=== PATIENT | female | born 1975 | race Hispanic/Latino ===

== ENCOUNTER 2019-05-06 06:17 | Emergency (ER) | payer SELFPAY ==
[2019-05-06 08:11] LABS: Absolute Lymphocytes (CBC) 1.5 K/uL (0.7-4.9); Absolute Monocytes 0.8 K/uL (0.1-1.3); Absolute Neutrophil 8.1 K/uL (1.8-8.0); Basophils % 0.6 % (0-1.3); Eosinophils % 1.7 % (0-4.4); Hematocrit 31.8 % (36.0-45.0); Lymphocytes % 14.2 % (15.3-44.8); MPV 7.5 fL (7.6-11.3); Monocytes % 7.3 % (3.3-12.3); RBC Red Blood Cell Count 3.64 M/uL (3.86-4.86)
[2019-05-06 08:14] LABS: Protime INR 0.96
[2019-05-06] MEDS ORDERED: FENTANYL CITR 100 MCG/2 ML ONE ×2 (08:18→11:22)
[2019-05-06 08:21] LABS: BUN Blood Urea Nitrogen 9 mg/dL (7-18); Bicarbonate 25 mmol/L (21-32); Glucose Level 109 mg/dL (74-106); Potassium 3.9 mmol/L (3.5-5.1); Sodium Level 138 mmol/L (136-145)
[2019-05-06] MEDS ORDERED: HEPARIN/D5W 25,000 UNIT/500 ML BAG IV ONE (10:48)
--- NOTE | 2019-05-06 11:01 | EDPHYS ---
Physician Documentation [facility] Name: Khadijah Lacey Age: 43 yrs Sex: Female : 1975 Arrival Date: 05/06/2019 Time: 06:19 Bed 7 Private MD: ED Physician Stevie Barbosa HPI: 05/06 07:47 This 43 yrs old Female presents to ER via Ambulatory with complaints of jr8 Numbness Of Arm, Arm Pain. 07:47 The patient or guardian complains of pain. The complaints affect the left arm. Context: jr8 The problem was sustained at home. Onset: The symptoms/episode began/occurred acutely, this morning, today. Treatment prior to arrival includes: no previous treatment. Modifying factors: The symptoms are alleviated by nothing. the symptoms are aggravated by movement. Associated signs and symptoms: Pertinent positives: numbness, pain, tingling. Severity of symptoms: At their worst the symptoms were moderate, in the emergency department the symptoms are unchanged. The patient has not experienced similar symptoms in the past. The patient has not recently seen a physician. Patient stated that she was laying on arm for several hours watching movies. Stated that she felt fine but then started to have numbness, tingling, and pain to left arm. Has not gone away for past hour . 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 - Social history:: Smoking status: Patient uses tobacco products, smokes one-half pack cigarettes per day. - Ebola Screening: : No symptoms or risks identified at this time. ROS: 07:47 Eyes: Negative for injury, pain, redness, and discharge, ENT: Negative for injury, jr8 pain, and discharge, Neck: Negative for injury, pain, and swelling, Cardiovascular: Negative for chest pain, palpitations, and edema, Respiratory: Negative for shortness of breath, cough, wheezing, and pleuritic chest pain, Abdomen/GI: Negative for abdominal pain, nausea, vomiting, diarrhea, and constipation, Back: Negative for injury and pain, Skin: Negative for injury, rash, and discoloration. 07:47 MS/extremity: Positive for pain, paresthesias, of the left arm. 07:47 Neuro: Positive for numbness, tingling, of the left arm. Exam: 07:47 Head/Face: Normocephalic, atraumatic. Eyes: Pupils equal round and reactive to light, jr8 extra-ocular motions intact. Lids and lashes normal. Conjunctiva and sclera are non-icteric and not injected. Cornea within normal limits. Periorbital areas with no swelling, redness, or edema. ENT: Nares patent. No nasal discharge, no septal abnormalities noted. Tympanic membranes are normal and external auditory canals are clear. Oropharynx with no redness, swelling, or masses, exudates, or evidence of obstruction, uvula midline. Mucous membranes moist. Neck: Trachea midline, no thyromegaly or masses palpated, and no cervical lymphadenopathy. Supple, full range of motion without nuchal rigidity, or vertebral point tenderness. No Meningismus. Cardiovascular: Regular rate and rhythm with a normal S1 and S2. No gallops, murmurs, or rubs. Normal PMI, no JVD. No pulse deficits. Respiratory: Lungs have equal breath sounds bilaterally, clear to auscultation and percussion. No rales, rhonchi or wheezes noted. No increased work of breathing, no retractions or nasal flaring. Abdomen/GI: Soft, non-tender, with normal bowel sounds. No distension or tympany. No guarding or rebound. No evidence of tenderness throughout. Back: No spinal tenderness. No costovertebral tenderness. Full range of motion. Skin: Warm, dry with normal turgor. Normal color with no rashes, no lesions, and no evidence of cellulitis. Neuro: Awake and alert, GCS 15, oriented to person, place, time, and situation. Cranial nerves II-XII grossly intact. Motor strength 5/5 in all extremities. Sensory grossly intact. Cerebellar exam normal. Normal gait. 07:47 Musculoskeletal/extremity: Extremities: grossly normal except: noted in the left arm: Patient has full ROM in all extremities. Mild pain with rotation of movement of left arm. Patient has mild sensory deficit to left forearm. Patient has 2+ pulses to right radial and PT, DP, and 2+ to left PT and DP. No pulse appreciated to left radial artery, Pulses: are absent in the left radial artery and left brachial artery, Perfusion: the extremity is pink, warm. Vital Signs: 06:31 BP 170 / 105; Pulse 91; Resp 18; Temp 97.8(O); Pulse Ox 100% on R/A; Weight 81.65 kg; lp1 Height 5 ft. 4 in. (162.56 cm); Pain 7/10; 08:15 BP 168 / 88; Pulse 84; Resp 15; Pulse Ox 100% on R/A; Pain 9/10; hb 09:30 BP 170 / 81; Pulse 80; Resp 14; Pulse Ox 99% on R/A; hb 10:15 BP 168 / 102; Pulse 85; Resp 16; Pulse Ox 100% on R/A; hb 10:34 Weight 83.8 kg (M); hb 11:15 BP 161 / 100; Pulse 88; Resp 16; Pulse Ox 100% on R/A; Pain 8/10; hb 12:00 BP 160 / 102; Pulse 86; Resp 15; Temp 98; Pulse Ox 100% on R/A; Pain 8/10; hb 10:34 Body Mass Index 31.71 (83.80 kg, 162.56 cm) hb MDM: 06:27 Patient medically screened. speedy 10:26 Data reviewed: vital signs, nurses notes, lab test result(s), EKG, radiologic studies, jr8 ultrasound. Data interpreted: Pulse oximetry: on room air is 99 %. Interpretation: normal. Counseling: I had a detailed discussion with the patient and/or guardian regarding: the historical points, exam findings, and any diagnostic results supporting the discharge/admit diagnosis, lab results, radiology results, the need to transfer to another facility. 10:59 ED course: Dr. Roche Medicine and Vascular surgery both accepted patient. Patient will jr8 be going to OR shortly after arrival to [facility] for revascularization . 05/06 07:00 Order name: CBC with Diff jr8 05/06 07:00 Order name: Basic Metabolic Panel; Complete Time: 08:40 [facility] 05/06 07:00 Order name: Protime (+inr); Complete Time: 08:40 [facility] 05/06 07:00 Order name: Ptt, Activated; Complete Time: 08:40 [facility] 06/13 07:03 Order name: CBC with Automated Diff; Complete Time: 08:40 EDMS 05/06 07:00 Order name: IV; Complete Time: 08:05 jr8 05/06 09:31 Order name: Upper Ext Artery Uni Emery; Complete Time: 11:08 EDMS 05/06 10:15 Order name: EKG; Complete Time: 10:16 jr8 05/06 10:15 Order name: EKG - Nurse/Tech; Complete Time: 10:42 jr8 Administered Medications: 08:05 Drug: fentaNYL (PF) 25 mcg Route: IVP; Site: right antecubital; hb 08:40 Follow up: Response: No adverse reaction; Pain is decreased hb 09:06 Drug: fentaNYL (PF) 50 mcg Route: IVP; Site: right antecubital; hb 09:40 Follow up: Response: No adverse reaction; Pain is decreased hb 11:00 Drug: Heparin (DVT/PE Drip) 18 units/kg/hr - (HEParin 94352 units, D5W 500 ml) hb {Co-Signature: aa5 (Kiarra Garcia RN).} Route: IV; Rate: calculated rate; Site: right wrist; 12:03 Follow up: Response: No adverse reaction; IV Status: Infusion continued upon transfer; hb IV Intake: 31ml 11:12 Drug: fentaNYL (PF) 50 mcg Route: IVP; Site: right antecubital; hb 11:32 Follow up: Response: No adverse reaction; Pain is decreased hb 12:03 Drug: Dilaudid 0.5 mg Route: IVP; Site: right antecubital; hb 12:03 Follow up: Response: Medication administered at discharge. hb Disposition: 05/06/19 11:[address] [facility]. 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 - Reason for transfer: Higher level of care. - Accepting physician is Dr. Roche. - Condition is Stable. - Problem is new. - Symptoms are unchanged. Addendum: 05/10/2019 08:34 Co-signature as Attending Physician, Stevie Barbosa MD I agree with the assessment and c mazariegos plan of care. Signatures: Dispatcher [employer] Stevie Kauffman MD MD cha Pena, Laura, RN RN lp1 Julian Patrick PA PA jr8 Doreen Connelly RN RN Kiarra Garcia RN aa5 Corrections: (The following items were deleted from the chart) 05/06 09:31 07:07 Upper Ext Artery Uni Emery ordered. EDMS EDMS 10:27 07:47 Musculoskeletal/extremity: Extremities: grossly normal except: noted in the left jr8 arm: Patient has full ROM in all extremities. Mild pain with rotation of movement of left arm. Patient has mild sensory deficit to left forearm. Patient has 2+ pulses to right radial and PT, DP, and 2+ to left PT and DP. No pulse appreciated to left radial artery, Perfusion: the extremity is pink, warm, jrShawanda 11:01 10:59 ED course: Dr. Cook Medicine and Vascular surgery both accepted patient. Patient 8 will be going to OR shortly after arrival to [facility] for revascularization . jr8 11:01 11:00 05/06/2019 11:[address] [facility]. Diagnosis is jr8 Arterial embolism and thrombosis - Left Upper Extremity . Reason for transfer: Higher level of care. Accepting physician is Dr. Cook. Condition is Stable. Problem is new. Symptoms are unchanged. jr8 12:16 11:01 05/06/2019 11:[address] [facility]. Diagnosis is hb Arterial embolism and thrombosis - Left Upper Extremity . Reason for transfer: Higher level of care. Accepting physician is Dr. Roche. Condition is Stable. Problem is new. Symptoms are unchanged. jr8
--- NOTE | 2019-05-06 11:01 | ER ---
Nurse's Notes [facility] Name: Khadijah Lacey Age: 43 yrs Sex: Female : 1975 Arrival Date: 05/06/2019 Time: 06:19 Bed 7 Private MD: Diagnosis: Arterial embolism and thrombosis-Left Upper Extremity Presentation: 05/06 06:30 Presenting complaint: Patient states: Pain to left arm, tingling feeling; States "I lp1 think I fell asleep on my arm for about 4-5 hours and then it woke me up"; Complaint of pain on motion of left arm. Transition of care: patient was not received from another setting of care. Onset of symptoms was May 06, 2019. Risk Assessment: Do you want to hurt yourself or someone else? Patient reports no desire to harm self or others. Initial Sepsis Screen: Does the patient meet any 2 criteria? No. Patient's initial sepsis screen is negative. Does the patient have a suspected source of infection? No. Patient's initial sepsis screen is negative. Care prior to arrival: None. 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 - Social history:: Smoking status: Patient uses tobacco products, smokes one-half pack cigarettes per day. - Ebola Screening: : No symptoms or risks identified at this time. Screenin:32 Abuse screen: Denies threats or abuse. Denies injuries from another. Nutritional lp1 screening: No deficits noted. Tuberculosis screening: No symptoms or risk factors identified. Fall Risk None identified. Assessment: 06:32 General: Appears uncomfortable, Behavior is appropriate for age. Pain: Complains of lp1 pain in left arm Pain currently is 7 out of 10 on a pain scale. Quality of pain is described as burning, tingling. Neuro: Level of Consciousness is awake, alert, obeys commands, Oriented to person, place, time, situation, Gait is steady, Pupils are PERRLA, Intact. Cardiovascular: Patient's skin is warm and dry. Respiratory: No deficits noted. GI: No signs and/or symptoms were reported involving the gastrointestinal system. : No signs and/or symptoms were reported regarding the genitourinary system. EENT: No signs and/or symptoms were reported regarding the EENT system. Derm: Skin is pink, warm \\T\\ dry. Musculoskeletal: Reports pain in left arm. 07:36 Reassessment: Pt to US. hb 08:06 Reassessment: Pt returned from US, unable to complete scan due to pt movement r/t pain. hb MISSY Jordan notified, Fentanyl administered as ordered. Family at bedside. 09:00 Reassessment: Patient appears in no apparent distress at this time. Patient and/or hb family updated on plan of care and expected duration. Pain level reassessed. Patient is alert, oriented x 3, equal unlabored respirations, skin warm/dry/pink. 09:58 Reassessment: Patient appears in no apparent distress at this time. Patient and/or hb family updated on plan of care and expected duration. Pain level reassessed. Patient is alert, oriented x 3, equal unlabored respirations, skin warm/dry/pink. 11:39 Reassessment: Report called to MILLIE Ureña at [facility]. Reassessment:. hb 11:45 Reassessment: Patient appears in no apparent distress at this time. Patient and/or hb family updated on plan of care and expected duration. Pain level reassessed. Patient is alert, oriented x 3, equal unlabored respirations, skin warm/dry/pink. Vital Signs: 06:31 BP 170 / 105; Pulse 91; Resp 18; Temp 97.8(O); Pulse Ox 100% on R/A; Weight 81.65 kg; lp1 Height 5 ft. 4 in. (162.56 cm); Pain 7/10; 08:15 BP 168 / 88; Pulse 84; Resp 15; Pulse Ox 100% on R/A; Pain 9/10; hb 09:30 BP 170 / 81; Pulse 80; Resp 14; Pulse Ox 99% on R/A; hb 10:15 BP 168 / 102; Pulse 85; Resp 16; Pulse Ox 100% on R/A; hb 10:34 Weight 83.8 kg (M); hb 11:15 BP 161 / 100; Pulse 88; Resp 16; Pulse Ox 100% on R/A; Pain 8/10; hb 12:00 BP 160 / 102; Pulse 86; Resp 15; Temp 98; Pulse Ox 100% on R/A; Pain 8/10; hb 10:34 Body Mass Index 31.71 (83.80 kg, 162.56 cm) hb ED Course: 06:19 Patient arrived in ED. am2 06:21 Julian Patrick PA is PHCP. jr8 06:21 Stevie Barbosa MD is Attending Physician. jr8 06:30 Taylor Flores, RN is Primary Nurse. lp1 06:31 Triage completed. lp1 06:32 Arm band placed on right wrist. lp1 06:34 Patient has correct armband on for positive identification. lp1 08:00 Inserted saline lock: 20 gauge in right antecubital area, using aseptic technique. hb Blood collected. 08:06 CBC with Diff Sent. hb 09:31 Upper Ext Artery Uni Emery In Process Unspecified. EDMS 10:59 Inserted saline lock: 20 gauge in right wrist, using aseptic technique. hb 11:11 EKG done, by rf test technician. reviewed by Julian LOUIS. sm3 12:15 No provider procedures requiring assistance completed. Patient transferred, IV remains hb in place. Administered Medications: 08:05 Drug: fentaNYL (PF) 25 mcg Route: IVP; Site: right antecubital; hb 08:40 Follow up: Response: No adverse reaction; Pain is decreased hb 09:06 Drug: fentaNYL (PF) 50 mcg Route: IVP; Site: right antecubital; hb 09:40 Follow up: Response: No adverse reaction; Pain is decreased hb 11:00 Drug: Heparin (DVT/PE Drip) 18 units/kg/hr - (HEParin 68438 units, D5W 500 ml) hb {Co-Signature: aa5 (Kiarra Garcia RN).} Route: IV; Rate: calculated rate; Site: right wrist; 12:03 Follow up: Response: No adverse reaction; IV Status: Infusion continued upon transfer; hb IV Intake: 31ml 11:12 Drug: fentaNYL (PF) 50 mcg Route: IVP; Site: right antecubital; hb 11:32 Follow up: Response: No adverse reaction; Pain is decreased hb 12:03 Drug: Dilaudid 0.5 mg Route: IVP; Site: right antecubital; hb 12:03 Follow up: Response: Medication administered at discharge. hb Intake: 12:03 IV: 31ml; Total: 31ml. hb Outcome: 11:00 ER care complete, transfer ordered by MD. araiza 12:15 Transferred by ground EMS to [facility]. hb 12:15 Condition: stable 12:15 Instructed on the need for transfer, Demonstrated understanding of instructions. 12:16 Patient left the ED. hb Signatures: Dispatcher [employer] EDMS Taylor Flores RN RN lp1 Julian Patrick PA PA jr8 Doreen Connelly RN RN Estela Lang am2 Dawna Rolon 3 Kiarra Garcia RN aa5 Corrections: (The following items were deleted from the chart) 06:32 06:32 Arm band placed on left wrist. lp1 lp1 07:03 06:30 Acuity: LINDA 4 lp1 lp1
--- NOTE | 2019-05-06 11:07 | RAD REPORT ---
EXAM DESCRIPTION: US - Upper Ext Artery Uni Emery - 05/06/2019 9:30 am CLINICAL HISTORY: Pulse deficit Left arm COMPARISON: No comparisons FINDINGS: The left upper extremity arterial system was interrogated utilizing Doppler technique. Normal flow was seen in the left common carotid artery, subclavian artery, axillary artery. Some flow was seen in the radial artery as well. No flow was visualized in the left radial artery at the level of the antecubital fossa and ulnar artery, compatible with arterial occlusion.
[2019-05-06] MEDS ORDERED: HYDROMORPHONE HCL 0.5 MG/0.5 ML INJ ONE (12:13)
--- NOTE | 2019-05-07 08:07 | EKG ---
Test Date: 2019-05-06 Test Time: 10:35:18 [employer] Outside Sales Representative: KARLEE MEASUREMENT RESULTS: Intervals: Rate: 79 NM: 142 QRSD: 80 QT: 402 QTc: 460 [place]: P: 55 NM: 142 QRS: 57 T: 55 INTERPRETIVE STATEMENTS: Normal sinus rhythm with sinus arrhythmia Normal ECG No previous ECG available for comparison Electronically Signed On 05-07-19 08:06:36 CDT by Du Ray
== END 2019-05-06 12:16 | disposition short-term general hospital (02) ==
LOC: ER 06:17
DX: I74.2 Embolism and thrombosis of arteries of the upper extremities (principal); F17.210 Nicotine dependence, cigarettes, uncomplicated
CPT/HCPCS: 36415; 80048; 85025; 85610; 85730; 93005; 93931; 96365; 96375; 99285; J1170; J3010

== ENCOUNTER 2019-08-06 06:14 | Emergency (ER) | payer SELFPAY ==
--- OUTSIDE RECORDS SUMMARY | 2019-08-06 06:17 | XMS REPORT ---
:1975 [facility] Address [address] [place] [address] Care Team Providers Name Role Phone RADHA LLANOS Unavailable Unavailable Problems This patient has no known problems. Allergies, Adverse Reactions, Alerts This patient has no known allergies or adverse reactions. Medications This patient has no known medications. Results Test Description Test Time Test Comments Text Results Atomic Results Result Comments U/S, ENDOVAGINAL 2019-05-11 Reason for FINAL REPORT PATIENT ID: (EV) 14:49:00 exam:->vaginal [id number] TECHNIQUE: bleeding Transabdominal and transvaginal grayscale ultrasound of the pelvis. INDICATION: 43-year-old woman with vaginal bleeding. COMPARISON: None. FINDINGS: UTERUS: The uterus measures approximately 8.5 x 4.6 x 6 cm cm. The uterus is diffusely heterogeneous in echotexture with a lobulated contour, suggestive of multiple uterine fibroids. For example, a circumscribed hypoechoic uterine fibroid measures 1.8 x 1.5 x 1.9 cm. The endometrial echo complex is not clearly identified on transvaginal images due to the suspected fibroids, however a structure resembling the endometrium on transabdominal images measures 0.6 cm. Cervical nabothian cysts. OVARIES/ADNEXA: The right ovary is unremarkable and measures 2.1 x 1.1 x 2.8 cm. The left ovary is not clearly visualized. Flow was not assessed in the right ovary as this was not a Doppler exam. PELVIS: No free fluid. IMPRESSION:Diffuse heterogeneous and lobulated contour of the uterus, suggestive of multiple fibroids. The endometrium was not clearly identified on transvaginal images due to the suspected fibroids, however a structure resembling the endometrium appears within normal limits on transabdominal images. RECOMMENDATION:Pelvic MRI with and without intravenous contrast may be obtained for further evaluation of above findings. Signed: Lissy Meraz MDReport Verified Date/Time: 05/11/2019 14:49:18 Reading Location: [place] [id number] Consult Reading Room C METABOLIC PANEL 2019-05-11 05:46:00 Test Item Value Reference Range Comments SODIUM (BEAKER) (test 138 meq/L 136-145 maas=021) POTASSIUM (BEAKER) (test 3.9 meq/L 3.5-5.1 pzue=081) CHLORIDE (BEAKER) (test 108 meq/L 98-107 pfuq=696) CO2 (BEAKER) (test itmf=824) 23 meq/L 22-29 BLOOD UREA NITROGEN (BEAKER) 9 mg/dL 7-21 (test kxpe=862) CREATININE (BEAKER) (test 0.73 mg/dL 0.57-1.25 nbyg=371) GLUCOSE RANDOM (BEAKER) 90 mg/dL 70-105 (test gxos=906) CALCIUM (BEAKER) (test 9.3 mg/dL 8.4-10.2 mnwd=426) EGFR (BEAKER) (test mL/min/1.73 sq m INSUFFICIENT CLINICAL DATA TO hbpc=6090) CALCULATE ESTIMATED GFR. [id number] 05:33:00 Test Item Value Reference Range Comments PARTIAL THROMBOPLASTIN TIME (BEAKER) (test 99.3 seconds 22.5-36.0 oqbf=559) CBC (HEMOGRAM ONLY)2019-05-11 05:23:00 Test Item Value Reference Range Comments WHITE BLOOD CELL COUNT (BEAKER) (test bwvd=972) 7.8 K/ L 3.5-10.5 RED BLOOD CELL COUNT (BEAKER) (test bzis=047) 3.00 M/ L 3.93-5.22 HEMOGLOBIN (BEAKER) (test lvjr=009) 8.3 GM/DL 11.2-15.7 HEMATOCRIT (BEAKER) (test xjnd=174) 26.4 % 34.1-44.9 MEAN CORPUSCULAR VOLUME (BEAKER) (test jvii=267) 88.0 fL 79.4-94.8 MEAN CORPUSCULAR HEMOGLOBIN (BEAKER) (test 27.7 pg 25.6-32.2 zkgl=875) MEAN CORPUSCULAR HEMOGLOBIN CONC (BEAKER) (test 31.4 GM/DL 32.2-35.5 txge=299) RED CELL DISTRIBUTION WIDTH (BEAKER) (test 15.5 % 11.7-14.4 vifn=779) PLATELET COUNT (BEAKER) (test jngb=079) 371 K/CU MM 150-450 MEAN PLATELET VOLUME (BEAKER) (test digj=433) 9.9 fL 9.4-12.3 NUCLEATED RED BLOOD CELLS (BEAKER) (test 0 /100 WBC 0-0 lfec=227) U/S, [id number] 17:50:00Reason for exam:->Vaginal bleedingShould this be performed at the bedside?->NoFINAL REPORT TECHNIQUE : Transabdominal and transvaginal grayscale ultrasound of the pelvis. INDICATION : 43-year-old woman with vaginal bleeding. COMPARISON: None. FINDINGS: UTERUS: The uterus measures approximately 8.5 x 4.6 x 6 cm cm. The uterus is diffusely heterogeneous in echotexture with a lobulated contour, suggestive of multiple uterine fibroids. For example, a circumscribed hypoechoic uterine fibroid measures 1.8 x 1.5 x 1.9 cm. The endometrial echo complex is not clearly identified on transvaginal images due to the suspected fibroids, however a structure resembling the endometrium on transabdominal images measures 0.6 cm. Cervical nabothian cysts. OVARIES/ADNEXA: The right ovary is unremarkable and measures 2.1 x 1.1 x 2.8 cm. The left ovary is not clearly visualized. Flow was not assessed in the right ovary as this was not a Doppler exam. PELVIS: No free fluid.IMPRESSION:Diffuse heterogeneous and lobulated contour of the uterus, suggestive of multiple fibroids. The endometrium was not clearly identified on transvaginal images due to the suspected fibroids, however a structure resembling the endometrium appears within normal limits on transabdominal images. RECOMMENDATION:Pelvic MRI with and without intravenous contrast may be obtained for further evaluation of above findings. Signed: Lissy Meraz MDReport Verified Date/Time: 05/10/2019 17:50:00 Reading Location: [address] Consult Reading Room [facility] METABOLIC [id number] 05:16:00 Test Item Value Reference Range Comments SODIUM (BEAKER) (test 137 meq/L 136-145 lsyx=695) POTASSIUM (BEAKER) (test 4.2 meq/L 3.5-5.1 tlom=004) CHLORIDE (BEAKER) (test 108 meq/L 98-107 ugvn=220) CO2 (BEAKER) (test 22 meq/L 22-29 gwqu=457) BLOOD UREA NITROGEN 9 mg/dL 7-21 (BEAKER) (test eqjr=970) CREATININE (BEAKER) (test 0.69 mg/dL 0.57-1.25 ipul=965) GLUCOSE RANDOM (BEAKER) 99 mg/dL 70-105 (test nsvv=890) CALCIUM (BEAKER) (test 9.0 mg/dL 8.4-10.2 ykns=018) EGFR (BEAKER) (test mL/min/1.73 sq m INSUFFICIENT CLINICAL DATA uswy=2997) TO CALCULATE ESTIMATED GFR. [id number] 05:03:00 Test Item Value Reference Range Comments PARTIAL THROMBOPLASTIN TIME (BEAKER) (test 91.7 seconds 22.5-36.0 deql=779) CBC (HEMOGRAM ONLY)2019-05-10 04:46:00 Test Item Value Reference Range Comments WHITE BLOOD CELL COUNT (BEAKER) (test aodw=122) 7.8 K/ L 3.5-10.5 RED BLOOD CELL COUNT (BEAKER) (test fnra=758) 3.00 M/ L 3.93-5.22 HEMOGLOBIN (BEAKER) (test jndw=326) 8.3 GM/DL 11.2-15.7 HEMATOCRIT (BEAKER) (test tnyr=796) 26.6 % 34.1-44.9 MEAN CORPUSCULAR VOLUME (BEAKER) (test gfif=917) 88.7 fL 79.4-94.8 MEAN CORPUSCULAR HEMOGLOBIN (BEAKER) (test 27.7 pg 25.6-32.2 ilqv=034) MEAN CORPUSCULAR HEMOGLOBIN CONC (BEAKER) (test 31.2 GM/DL 32.2-35.5 qcbu=608) RED CELL DISTRIBUTION WIDTH (BEAKER) (test 15.4 % 11.7-14.4 tdmi=340) PLATELET COUNT (BEAKER) (test mttc=552) 350 K/CU MM 150-450 MEAN PLATELET VOLUME (BEAKER) (test fgrq=735) 9.8 fL 9.4-12.3 NUCLEATED RED BLOOD CELLS (BEAKER) (test 0 /100 WBC 0-0 drku=652) [id number] 11:57:00 Test Item Value Reference Range Comments PARTIAL THROMBOPLASTIN TIME (BEAKER) (test 78.1 seconds 22.5-36.0 yssh=803) BASIC METABOLIC [id number] 06:24:00 Test Item Value Reference Range Comments SODIUM (BEAKER) (test 138 meq/L 136-145 bogy=781) POTASSIUM (BEAKER) (test 4.2 meq/L 3.5-5.1 kltu=724) CHLORIDE (BEAKER) (test 109 meq/L 98-107 rhte=003) CO2 (BEAKER) (test 23 meq/L 22-29 fran=884) BLOOD UREA NITROGEN 9 mg/dL 7-21 (BEAKER) (test lsuh=111) CREATININE (BEAKER) (test 0.69 mg/dL 0.57-1.25 adqx=686) GLUCOSE RANDOM (BEAKER) 88 mg/dL 70-105 (test eawg=225) CALCIUM (BEAKER) (test 8.9 mg/dL 8.4-10.2 fjct=753) EGFR (BEAKER) (test mL/min/1.73 sq m INSUFFICIENT CLINICAL DATA aqve=4352) TO CALCULATE ESTIMATED GFR. [id number] 06:09:00 Test Item Value Reference Range Comments PARTIAL THROMBOPLASTIN TIME (BEAKER) (test 87.6 seconds 22.5-36.0 xweq=146) CBC (HEMOGRAM ONLY)2019-05-09 05:53:00 Test Item Value Reference Range Comments WHITE BLOOD CELL COUNT (BEAKER) (test qjuj=355) 7.6 K/ L 3.5-10.5 RED BLOOD CELL COUNT (BEAKER) (test uodr=982) 3.01 M/ L 3.93-5.22 HEMOGLOBIN (BEAKER) (test aknh=993) 8.4 GM/DL 11.2-15.7 HEMATOCRIT (BEAKER) (test dsyh=012) 27.1 % 34.1-44.9 MEAN CORPUSCULAR VOLUME (BEAKER) (test nwxf=283) 90.0 fL 79.4-94.8 MEAN CORPUSCULAR HEMOGLOBIN (BEAKER) (test 27.9 pg 25.6-32.2 cyhb=732) MEAN CORPUSCULAR HEMOGLOBIN CONC (BEAKER) (test 31.0 GM/DL 32.2-35.5 jwrf=091) RED CELL DISTRIBUTION WIDTH (BEAKER) (test 15.6 % 11.7-14.4 dgih=375) PLATELET COUNT (BEAKER) (test gpkn=597) 350 K/CU MM 150-450 MEAN PLATELET VOLUME (BEAKER) (test gtyk=363) 10.0 fL 9.4-12.3 NUCLEATED RED BLOOD CELLS (BEAKER) (test 0 /100 WBC 0-0 cuxx=124) [id number] 22:21:00 Test Item Value Reference Range Comments PARTIAL THROMBOPLASTIN TIME (BEAKER) (test 113.4 seconds 22.5-36.0 vsev=701) [id number] 14:36:00 Test Item Value Reference Range Comments PARTIAL THROMBOPLASTIN TIME (BEAKER) (test 101.2 seconds 22.5-36.0 sxmu=851) CT, CHEST WITH IV CONTRAST- PE TEST [id number] 11:05:00FINAL REPORT TECHNIQUE: CT of the chest WITH intravenous contrast ( pulmonary embolism protocol). Dose modulation, iterative reconstruction, and/or weight-based adjustment of the mA/kV was utilized to reduce the radiation dose to as low as reasonably achievable. INDICATION: Rule out pulmonary embolus. COMPARISON: None. FINDINGS: LINES/TUBES: None. PULMONARY ARTERIES: Proximal to the bifurcation of the main pulmonary artery, the main pulmonary artery is 2 cm in diameter. No filling defects within the pulmonary arteries to suggest pulmonary embolus. LUNGS AND AIRWAYS: Centralairways are patent. No consolidation. 3 mm nodular density in the left lower lobe (axial lung windowseries image 39). Mild dependent atelectasis in both lower lobes. PLEURA: The pleural spaces are clear. HEART AND MEDIASTINUM: The visualized thyroid gland is normal. No significant mediastinal, hilar,or axillary lymphadenopathy. The heart and pericardium are within normal limits. SOFT TISSUES AND BONES: Unremarkable. UPPER ABDOMEN: 1.3 x 1.1 cm left adrenal nodule with density of 4 Hounsfield units, consistent with a benign adenoma. Otherwise, unremarkable. IMPRESSION:No pulmonary embolism or other acute abnormalities in the chest. 3 mm nodular density in the left lower lobe may represent a nodular focus of atelectasis, however pulmonary nodule cannot be excluded. Benign left adrenal adenoma. RECOMMENDATION:If patient is at high risk for bronchogenic neoplasm, then follow-up chest CT may be obtained in 12 months to reassess the nodular density. If patient is at low risk for bronchogenic neoplasm, then no follow-up imaging is recommended for this finding. Signed: Lissy Meraz MDReport Verified Date/Time: 05/08/2019 11:05:08 Reading Location: [facility] [id number] CT Body Reading Room Electronically signed by: LSISY MERAZ MD on 2018 11:05 AMBASIC METABOLIC [id number] 06:56:00 Test Item Value Reference Range Comments SODIUM (BEAKER) (test 135 meq/L 136-145 bmnr=608) POTASSIUM (BEAKER) (test 3.9 meq/L 3.5-5.1 przb=352) CHLORIDE (BEAKER) (test 105 meq/L 98-107 djvk=363) CO2 (BEAKER) (test 24 meq/L 22-29 suqu=927) BLOOD UREA NITROGEN 9 mg/dL 7-21 (BEAKER) (test kqfi=151) CREATININE (BEAKER) (test 0.69 mg/dL 0.57-1.25 yakd=956) GLUCOSE RANDOM (BEAKER) 116 mg/dL 70-105 (test hxbd=090) CALCIUM (BEAKER) (test 9.0 mg/dL 8.4-10.2 lvzu=218) EGFR (BEAKER) (test mL/min/1.73 sq m INSUFFICIENT CLINICAL DATA rahs=5757) TO CALCULATE ESTIMATED GFR. [id number] 06:44:00 Test Item Value Reference Range Comments PARTIAL THROMBOPLASTIN TIME (BEAKER) (test 62.4 seconds 22.5-36.0 qmbs=503) CBC (HEMOGRAM ONLY)2019-05-08 06:23:00 Test Item Value Reference Range Comments WHITE BLOOD CELL COUNT (BEAKER) (test ughc=867) 9.2 K/ L 3.5-10.5 RED BLOOD CELL COUNT (BEAKER) (test csps=662) 3.12 M/ L 3.93-5.22 HEMOGLOBIN (BEAKER) (test syse=181) 8.6 GM/DL 11.2-15.7 HEMATOCRIT (BEAKER) (test sljd=582) 27.9 % 34.1-44.9 MEAN CORPUSCULAR VOLUME (BEAKER) (test over=892) 89.4 fL 79.4-94.8 MEAN CORPUSCULAR HEMOGLOBIN (BEAKER) (test 27.6 pg 25.6-32.2 xtcr=980) MEAN CORPUSCULAR HEMOGLOBIN CONC (BEAKER) (test 30.8 GM/DL 32.2-35.5 kddm=453) RED CELL DISTRIBUTION WIDTH (BEAKER) (test 15.4 % 11.7-14.4 hudx=776) PLATELET COUNT (BEAKER) (test adsh=049) 354 K/CU MM 150-450 MEAN PLATELET VOLUME (BEAKER) (test dzvk=687) 9.8 fL 9.4-12.3 NUCLEATED RED BLOOD CELLS (BEAKER) (test 0 /100 WBC 0-0 napp=658) [id number] 23:48:00 Test Item Value Reference Range Comments PARTIAL THROMBOPLASTIN TIME (BEAKER) (test 54.2 seconds 22.5-36.0 kmdt=277) URINALYSIS WITH MICROSCOPIC IF [id number] 14:38:00 Test Item Value Reference Range Comments COLOR (BEAKER) (test jhde=344) Yellow CLARITY (BEAKER) (test cead=681) Hazy SPECIFIC GRAVITY UA (BEAKER) (test oxdx=495) 1.020 1.001-1.035 PH UA (BEAKER) (test jdqa=872) 5.5 5.0-8.0 PROTEIN UA (BEAKER) (test nrdf=318) 10 mg/dL Negative GLUCOSE UA (BEAKER) (test vtrz=923) Negative Negative KETONES UA (BEAKER) (test yuaq=338) Negative Negative BILIRUBIN UA (BEAKER) (test gldg=993) Negative Negative BLOOD UA (BEAKER) (test rugc=440) Negative Negative NITRITE UA (BEAKER) (test umhq=089) Negative Negative LEUKOCYTE ESTERASE UA (BEAKER) (test qdkj=122) Negative Negative UROBILINOGEN UA (BEAKER) (test wagd=910) 0.2 mg/dL 0.2-1.0 SOURCE(BEAKER) (test fwwz=5826) URINALYSIS [id number] 14:38:00 Test Item Value Reference Range Comments RBC UA (BEAKER) (test bivs=326) 1 /HPF WBC UA (BEAKER) (test xlbu=653) < /HPF BACTERIA (BEAKER) (test ywjw=202) Rare MUCUS (BEAKER) (test pfyv=8030) Many SQUAMOUS EPITHELIAL (BEAKER) (test kywk=867) 3 /HPF [id number] 14:28:00 Test Item Value Reference Range Comments PARTIAL THROMBOPLASTIN TIME (BEAKER) (test 87.6 seconds 22.5-36.0 eqau=563) SCREEN, [id number] 09:38:00 Test Item Value Reference Range Comments TEST URINE (BEAKER) (test mnji=979) Negative BASIC METABOLIC [id number] 06:38:00 Test Item Value Reference Range Comments SODIUM (BEAKER) (test 137 meq/L 136-145 etzk=561) POTASSIUM (BEAKER) (test 3.7 meq/L 3.5-5.1 ghil=742) CHLORIDE (BEAKER) (test 106 meq/L 98-107 xdnd=199) CO2 (BEAKER) (test 24 meq/L 22-29 tuji=099) BLOOD UREA NITROGEN 10 mg/dL 7-21 (BEAKER) (test lwhf=938) CREATININE (BEAKER) (test 0.74 mg/dL 0.57-1.25 oclk=962) GLUCOSE RANDOM (BEAKER) 86 mg/dL 70-105 (test lkqv=209) CALCIUM (BEAKER) (test 9.3 mg/dL 8.4-10.2 lpie=590) EGFR (BEAKER) (test mL/min/1.73 sq m INSUFFICIENT CLINICAL DATA lpmq=3892) TO CALCULATE ESTIMATED GFR. [id number] 06:17:00 Test Item Value Reference Range Comments PARTIAL THROMBOPLASTIN TIME (BEAKER) (test 49.3 seconds 22.5-36.0 nyvr=214) CBC (HEMOGRAM ONLY)2019-05-07 06:00:00 Test Item Value Reference Range Comments WHITE BLOOD CELL COUNT (BEAKER) (test jkwv=946) 10.8 K/ L 3.5-10.5 RED BLOOD CELL COUNT (BEAKER) (test sdpe=767) 3.38 M/ L 3.93-5.22 HEMOGLOBIN (BEAKER) (test mxfg=410) 9.3 GM/DL 11.2-15.7 HEMATOCRIT (BEAKER) (test ecrz=054) 30.0 % 34.1-44.9 MEAN CORPUSCULAR VOLUME (BEAKER) (test ksdw=444) 88.8 fL 79.4-94.8 MEAN CORPUSCULAR HEMOGLOBIN (BEAKER) (test 27.5 pg 25.6-32.2 brmx=773) MEAN CORPUSCULAR HEMOGLOBIN CONC (BEAKER) (test 31.0 GM/DL 32.2-35.5 plch=886) RED CELL DISTRIBUTION WIDTH (BEAKER) (test 15.4 % 11.7-14.4 nxxf=844) PLATELET COUNT (BEAKER) (test hbti=638) 367 K/CU MM 150-450 MEAN PLATELET VOLUME (BEAKER) (test ftvd=879) 9.8 fL 9.4-12.3 NUCLEATED RED BLOOD CELLS (BEAKER) (test 0 /100 WBC 0-0 buft=837) [id number] 23:21:00 Test Item Value Reference Range Comments PARTIAL THROMBOPLASTIN TIME (BEAKER) (test 41.9 seconds 22.5-36.0 thte=882) [id number] 16:46:00 Test Item Value Reference Range Comments PARTIAL THROMBOPLASTIN TIME (BEAKER) (test 29.2 seconds 22.5-36.0 bwqp=679) Prior to initiating heparin
--- OUTSIDE RECORDS SUMMARY | 2019-08-06 06:17 | XMS REPORT | Clinical Summary ---
:1975 Author Organization [facility] Address [address] [place] [address] Care Team Providers Name Role Phone Pcp, No Primary Care Provider Unavailable Brian Uribe Unavailable Allergies No Known Allergies Medications Medication Sig Dispensed Refills Start Date End Date Status apixaban (ELIQUIS) Take 1 tablet 60 tablet 2 05/11/2019 08/09/2019 Active 5 mg Tab tablet (5 mg total) by mouth 2 (two) times daily for 90 days. famotidine Take 1 tablet 30 tablet 0 05/11/2019 Active (PEPCID) 20 MG (20 mg total) tablet by mouth every 12 (twelve) hours. famotidine Take 1 tablet 30 tablet 0 05/11/2019 05/11/2019 Discontinued (PEPCID) 20 MG (20 mg total) tablet by mouth every 12 (twelve) hours. apixaban (ELIQUIS) Take 1 tablet 60 tablet 2 05/11/2019 05/11/2019 Discontinued 5 mg Tab tablet (5 mg total) by mouth 2 (two) times daily for 90 days. 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 Last Filed Vital Signs Vital Sign Reading Time Taken Blood Pressure 130/74 05/11/2019 4:21 PM CDT Pulse 78 05/11/2019 4:21 PM CDT Temperature 36.2 C (97.2 F) 05/11/2019 4:21 PM CDT Respiratory Rate 18 05/11/2019 4:21 PM CDT Oxygen Saturation 100% 05/11/2019 4:21 PM CDT Inhaled Oxygen Concentration - - Weight 83.3 kg (183 lb 10.3 oz) 05/11/2019 9:00 AM CDT Height 162.6 cm (5' 4") 05/08/2019 11:00 PM CDT Body Mass Index 31.52 05/11/2019 9:00 AM CDT Plan of Treatment Not on file Procedures Procedure Name Priority Date/Time Associated Comments Diagnosis RHYTHM STRIP - SCAN 05/14/2019 11:50 AM CDT REPORT OF PROCEDURE - 05/13/2019 8:50 ENDOSCOPY SCAN AM CDT CARDIAC CATH REPORT - 05/13/2019 8:50 SCAN AM CDT RHYTHM STRIP - SCAN 05/13/2019 8:50 AM CDT RHYTHM STRIP - SCAN 05/12/2019 10:20 AM CDT BASIC METABOLIC PANEL Routine 05/11/2019 4:53 Results for this (7) AM CDT procedure are in the results section. CBC (HEMOGRAM ONLY) Routine 05/11/2019 4:53 Results for this AM CDT procedure are in the results section. APTT Routine 05/11/2019 4:53 Results for this AM CDT procedure are in the results section. US PELVIS Routine 05/10/2019 3:58 Results for this PM CDT procedure are in the results section. US ENDOVAGINAL EV Routine 05/10/2019 3:58 Results for this PM CDT procedure are in the results section. APTT Routine 05/10/2019 4:31 Results for this AM CDT procedure are in the results section. BASIC METABOLIC PANEL Routine 05/10/2019 4:31 Results for this (7) AM CDT procedure are in the results section. CBC (HEMOGRAM ONLY) Routine 05/10/2019 4:31 Results for this AM CDT procedure are in the results section. APTT Routine 05/09/2019 11:32 Results for this AM CDT procedure are in the results section. APTT Routine 05/09/2019 5:01 Results for this AM CDT procedure are in the results section. BASIC METABOLIC PANEL Routine 05/09/2019 5:01 Results for this (7) AM CDT procedure are in the results section. CBC (HEMOGRAM ONLY) Routine 05/09/2019 5:01 Results for this AM CDT procedure are in the results section. APTT Routine 05/08/2019 9:23 Results for this PM CDT procedure are in the results section. APTT Routine 05/08/2019 1:41 Results for this PM CDT procedure are in the results section. CT CHEST PE TEST DESIGN Routine 05/08/2019 8:28 Results for this AM CDT procedure are in the results section. APTT Routine 05/08/2019 6:04 Results for this AM CDT procedure are in the results section. BASIC METABOLIC PANEL Routine 05/08/2019 6:04 Results for this (7) AM CDT procedure are in the results section. CBC (HEMOGRAM ONLY) Routine 05/08/2019 6:04 Results for this AM CDT procedure are in the results section. APTT Routine 05/07/2019 9:56 Results for this PM CDT procedure are in the results section. ECHOCARDIOGRAM REPORT - 05/07/2019 9:23 SCAN PM CDT PERIPHERAL VASCULAR 05/07/2019 9:22 REPORT - SCAN PM CDT URINALYSIS MICROSCOPIC Routine 05/07/2019 1:57 Results for this PM CDT procedure are in the results section. APTT Routine 05/07/2019 1:57 Results for this PM CDT procedure are in the results section. URINALYSIS WITH Routine 05/07/2019 1:57 Results for this MICROSCOPIC IF PM CDT procedure are in INDICATED the results section. VENOGRAM 05/07/2019 1:00 Limb ischemia PM CDT SCREEN, URINE Routine 05/07/2019 9:05 Results for this AM CDT procedure are in the results section. APTT Routine 05/07/2019 4:23 Results for this AM CDT procedure are in the results section. BASIC METABOLIC PANEL Routine 05/07/2019 4:23 Results for this (7) AM CDT procedure are in the results section. CBC (HEMOGRAM ONLY) Routine 05/07/2019 4:23 Results for this AM CDT procedure are in the results section. APTT Routine 05/06/2019 10:06 Results for this PM CDT procedure are in the results section. VENOUS DOPPLER LEGS Routine 05/06/2019 8:55 Results for this BILATERAL PM CDT procedure are in the results section. APTT Routine 05/06/2019 4:20 Results for this PM CDT procedure are in the results section. 2D ECHO W/ DOPPLER Routine 05/06/2019 4:05 Results for this (CW/PW/COLOR) PM CDT procedure are in the results section. after 08/05/2018 Results RHYTHM STRIP - SCAN (05/14/2019 11:50 AM CDT)Only the most recent of3 resultswithin the time period is included. Narrative Performed At EKG-SCANNED (05/13/2019 8:50 AM CDT) Narrative Performed At CARDIAC CATH REPORT - SCAN (05/13/2019 8:50 AM CDT) Narrative Performed At aPTT (05/11/2019 4:53 AM CDT)Only the most recent of12 resultswithin the time period is included. PTT 99.3 (H) 22.5 - 36.0 seconds [facility] Specimen Blood Performing Organization Address City/State/Zipcode Phone Number [facility] [address] [place] [address] CENTER CBC (Hemogram only) (05/11/2019 4:53 AM CDT)Only the most recent of5 resultswithin the time period is included. WBC 7.8 3.5 - 10.5 K/L [facility] RBC 3.00 (L) 3.93 - 5.22 M/L [facility] Hemoglobin 8.3 (L) 11.2 - 15.7 GM/DL [facility] Hematocrit 26.4 (L) 34.1 - 44.9 % [facility] MCV 88.0 79.4 - 94.8 fL [facility] MCH 27.7 25.6 - 32.2 pg [facility] MCHC 31.4 (L) 32.2 - 35.5 GM/DL [facility] RDW 15.5 (H) 11.7 - 14.4 % [facility] Platelets 371 150 - 450 K/CU MM [facility] MPV 9.9 9.4 - 12.3 fL [facility] nRBC 0 0 - 0 /100 WBC [facility] Specimen Blood Performing Organization Address City/State/Zipcode Phone Number [address] [address] CENTER Basic Metabolic Panel (05/11/2019 4:53 AM CDT)Only the most recent of5 resultswithin the time period is included. Sodium 138 136 - 145 meq/L [facility] Potassium 3.9 3.5 - 5.1 meq/L [facility] Chloride 108 (H) 98 - 107 meq/L [facility] CO2 23 22 - 29 meq/L [facility] BUN 9 7 - 21 mg/dL [facility] Creatinine 0.73 0.57 - 1.25 mg/dL [facility] Glucose 90 70 - 105 mg/dL [facility] Calcium 9.3 8.4 - 10.2 mg/dL [facility] EGFR Comment: INSUFFICIENT CLINICAL mL/min/1.73 sq m [facility] DATA TO CALCULATE ESTIMATED [facility]ENTER GFR. Specimen Blood Performing Organization Address City/State/Zipcode Phone Number [address] [address] CENTER US Endovaginal (05/10/2019 3:58 PM CDT) Specimen Narrative Performed At FINAL REPORT [facility] TECHNIQUE: Transabdominal and transvaginal grayscale ultrasound of the [...] a Doppler exam. PELVIS: No free fluid. IMPRESSION: Diffuse heterogeneous and lobulated contour of the uterus, suggestive of multiple fibroids. The endometrium was not clearly identified on transvaginal images due to the suspected fibroids, however a structure resembling the endometrium appears within normal limits on transabdominal images. RECOMMENDATION: Pelvic MRI with and without intravenous contrast may be obtained for further evaluation of above findings. Signed: Dieudonne Meraz MD Report Verified Date/Time:05/11/2019 14:49:18 Reading Location: [address] Consult Reading Room Procedure Note Interface, External Ris In - 05/11/2019 2:49 PM CDT FINAL REPORT TECHNIQUE: Transabdominal and transvaginal grayscale ultrasound of the [...] a Doppler exam. PELVIS: No free fluid. IMPRESSION: Diffuse heterogeneous and lobulated contour of the uterus, suggestive of multiple fibroids. The endometrium was not clearly identified on transvaginal images due to the suspected fibroids, however a structure resembling the endometrium appears within normal limits on transabdominal images. RECOMMENDATION: Pelvic MRI with and without intravenous contrast may be obtained for further evaluation of above findings. Signed: Dieudonne Meraz MD Report Verified Date/Time: 05/11/2019 14:49:18 Reading Location: [facility] [id number] Consult Reading Room Performing Organization Address City/State/Zipcode Phone Number [facility] US pelvis (05/10/2019 3:58 PM CDT) Specimen Narrative Performed At FINAL REPORT [facility] TECHNIQUE: Transabdominal and transvaginal grayscale ultrasound of the [...] a Doppler exam. PELVIS: No free fluid. IMPRESSION: Diffuse heterogeneous and lobulated contour of the uterus, suggestive of multiple fibroids. The endometrium was not clearly identified on transvaginal images due to the suspected fibroids, however a structure resembling the endometrium appears within normal limits on transabdominal images. RECOMMENDATION: Pelvic MRI with and without intravenous contrast may be obtained for further evaluation of above findings. Signed: Dieudonne Meraz MD Report Verified Date/Time:05/10/2019 17:50:00 Reading Location: [facility] B1 C013W Consult Reading Room Procedure Note Interface, External Ris In - 05/10/2019 5:52 PM CDT FINAL REPORT TECHNIQUE: Transabdominal and transvaginal grayscale ultrasound of the [...] a Doppler exam. PELVIS: No free fluid. IMPRESSION: Diffuse heterogeneous and lobulated contour of the uterus, suggestive of multiple fibroids. The endometrium was not clearly identified on transvaginal images due to the suspected fibroids, however a structure resembling the endometrium appears within normal limits on transabdominal images. RECOMMENDATION: Pelvic MRI with and without intravenous contrast may be obtained for further evaluation of above findings. Signed: Dieudonne Meraz MD Report Verified Date/Time: 05/10/2019 17:50:00 Reading Location: [facility] C013W Consult Reading Room Performing Organization Address City/State/Zipcode Phone Number [facility] CT chest for pulmonary embolus (05/08/2019 8:28 AM CDT) Specimen Narrative Performed At FINAL REPORT [facility] TECHNIQUE: CT of the chest WITH intravenous contrast (pulmonary embolism protocol). Dose modulation, iterative reconstruction, and/or weight-based adjustment of the mA/kV was utilized to reduce the radiation dose to as low as reasonably achievable. INDICATION: Rule out pulmonary embolus. COMPARISON: None. FINDINGS: LINES/TUBES: None. PULMONARY ARTERIES: Proximal to the bifurcation of the main pulmonary artery, the main pulmonary artery is 2 cm in diameter.No filling defects within the pulmonary arteries to suggest pulmonary embolus. LUNGS AND AIRWAYS: Central airways are patent. No consolidation. 3 mm nodular density in the left lower lobe (axial lung window series image 39). Mild dependent atelectasis in both lower lobes. PLEURA: The pleural spaces are clear. HEART AND MEDIASTINUM: The visualized thyroid gland is normal. No significant mediastinal, hilar, or axillary lymphadenopathy. The heart and pericardium are within normal limits. SOFT TISSUES AND BONES: Unremarkable. UPPER ABDOMEN: 1.3 x 1.1 cm left adrenal nodule with density of 4 Hounsfield units, consistent with a benign adenoma. Otherwise, unremarkable. IMPRESSION: No pulmonary embolism or other acute abnormalities in the chest. 3 mm nodular density in the left lower lobe may represent a nodular focus of atelectasis, however pulmonary nodule cannot be excluded. Benign left adrenal adenoma. RECOMMENDATION: If patient is at high risk for bronchogenic neoplasm, then follow-up chest CT may be obtained in 12 months to reassess the nodular density. If patient is at low risk for bronchogenic neoplasm, then no follow-up imaging is recommended for this finding. Signed: Dieudonne Meraz MD Report Verified Date/Time:05/08/2019 11:05:08 Reading Location: [place] [id number] CT Body Reading Room Procedure Note Interface, External Ris In - 05/08/2019 11:07 AM CDT FINAL REPORT TECHNIQUE: CT of the chest WITH intravenous contrast (pulmonary embolism protocol). Dose modulation, iterative reconstruction, and/or [...] to suggest pulmonary embolus. LUNGS AND AIRWAYS: Central airways are patent. No consolidation. 3 mm nodular density in the left lower lobe (axial lung window series image 39). Mild dependent atelectasis in both lower lobes. PLEURA: The pleural spaces are clear. HEART AND MEDIASTINUM: The visualized thyroid gland is normal. No significant mediastinal, hilar, or axillary lymphadenopathy. The heart and pericardium are within normal limits. SOFT TISSUES AND BONES: Unremarkable. UPPER ABDOMEN: 1.3 x 1.1 cm left adrenal nodule with density of 4 Hounsfield units, consistent with a benign adenoma. Otherwise, unremarkable. IMPRESSION: No pulmonary embolism or other acute abnormalities in the chest. 3 mm nodular density in the left lower lobe may represent a nodular focus of atelectasis, however pulmonary nodule cannot be excluded. Benign left adrenal adenoma. RECOMMENDATION: If patient is at high risk for bronchogenic neoplasm, then follow-up chest CT may be obtained in 12 months to reassess the nodular density. If patient is at low risk for bronchogenic neoplasm, then no follow-up imaging is recommended for this finding. Signed: Dieudonne Meraz MD Report Verified Date/Time: 05/08/2019 11:05:08 Reading Location: [address] Body Reading Room Performing Organization Address City/[facility] Phone Number [facility] [phone] RIS ECHOCARDIOGRAM REPORT - SCAN (05/07/2019 9:23 PM CDT) Narrative Performed At PERIPHERAL VASCULAR REPORT - SCAN (05/07/2019 9:22 PM CDT) Narrative Performed At Urinalysis Microscopic Only (05/07/2019 1:57 PM CDT) RBC, UA 1 /HPF [facility] WBC, UA <1 /HPF [facility] Bacteria, UA Rare [facility] Mucus Many [facility] Squam Epithel, UA 3 /HPF [facility] Specimen Urine Performing Organization Address City/State/Zipcode Phone Number [facility] [address] [place] [address] [phone] [place] Urinalysis with Microscopic If Indicated (05/07/2019 1:57 PM CDT) Color, UA Yellow [facility] Clarity, UA Hazy [facility] Specific Crawford, UA 1.020 1.001 - 1.035 [facility] pH, UA 5.5 5.0 - 8.0 [facility] Protein, UA 10 mg/dL (A) Negative [facility] Glucose, UA Negative Negative [facility] Ketones, UA Negative Negative [facility] Bilirubin, UA Negative Negative [facility] Blood, UA Negative Negative [facility] Nitrite, UA Negative Negative [facility] Leukocytes, UA Negative Negative [facility] Urobilinogen, UA 0.2 0.2 - 1.0 mg/dL [facility] Specimen Source [facility] Specimen Urine Performing Organization Address City/[facility]/Zipcode Phone Number [place] [phone] [place] [address] [place] Screen, urine (05/07/2019 9:05 AM CDT) Preg Test, Ur Negative [facility] Specimen Urine Performing Organization Address City/[facility]/Zipcode Phone Number [place] [phone] [place] [address] [place] Venous doppler legs bilateral (05/06/2019 8:55 PM CDT) Ejection Fraction [facility]CK[facility]ON CPACS Specimen Impressions Performed At Right Impression [facility] CPACS 1. There is no deep venous obstruction in the common femoral, profunda femoral, femoral, popliteal, posterior tibial or peroneal veins. 2. There is no superficial venous obstruction in the great saphenous vein. Left Impression 1. There is no deep venous obstruction in the common femoral, profunda femoral, femoral, popliteal, posterior tibial or peroneal veins. 2. There is no superficial venous obstruction in the great saphenous vein. Conclusions Summary Venous duplex imaging and compression of the bilateral lower extremities were performed. The veins were adequately visualized. The bilateral venous systems were patent and compressible with no evidence of thrombus. The venous Doppler waveforms were phasic with respiration . Signature Velocities are measured in cm/s ; Diameters are measured in cm Narrative Performed At LAB - Lower Extremities DVT Study [facility] Demographics Patient NameIDALIA, Date of Study 05/06/2019 KHADIJAH 43 Visit [id number] Female of 1975 Referring Subha Dali,Room Number 1011 Physician [employer] Danae Coker T Physician Procedure Type of Study: Veins: Lower Extremities DVT Study, VENOUS DOPPLER LEG, BILATERAL. Indications for Study:R/O DVT. Patient Status:Routine. Study Location:Portable. Technical Quality:Adequate visualization. Risk Factors History of Disease + -----+ +--------+ !Diagnosis !Date!Comments! + -----+ +--------+ !History/Risk Factors: !05/06/2019!LUE DVT ! + -----+ +--------+ Procedure Note Interface, External Ris In - 05/07/2019 8:49 AM CDT PV LAB - Lower Extremities DVT Study Demographics Patient Name IDALIA, Date of Study 05/06/2019 KHADIJAH Age 43 Visit Number [id number] Gender Female Accession Number [id number] Date of 1975 Referring Subha Mcnally, Room Number 1011 Physician [employer] Danae Stephen Interpreting Joie Coker T Physician Procedure Type of Study: Veins: Lower Extremities DVT Study, VENOUS DOPPLER LEG, BILATERAL. Indications for Study:R/O DVT. Patient Status:Routine. Study Location:Portable. Technical Quality:Adequate visualization. Risk Factors History of Disease + + +--------+ !Diagnosis !Date !Comments! + + +--------+ !History/Risk Factors: !05/06/2019!DEVIN DVT ! + + +--------+ Impressions Right Impression 1. There is no deep venous obstruction in the common femoral, profunda femoral, femoral, popliteal, posterior tibial or peroneal veins. 2. There is no superficial venous obstruction in the great saphenous vein. Left Impression 1. There is no deep venous obstruction in the common femoral, profunda femoral, femoral, popliteal, posterior tibial or peroneal veins. 2. There is no superficial venous obstruction in the great saphenous vein. Conclusions Summary Venous duplex imaging and compression of the bilateral lower extremities were performed. The veins were adequately visualized. The bilateral venous systems were patent and compressible with no evidence of thrombus. The venous Doppler waveforms were phasic with respiration . Signature Velocities are measured in cm/s ; Diameters are measured in cm Performing Organization Address City/State/Zipcode Phone Number [facility] [employer] 2D Echo W/Doppler(CW/PW/Color) (05/06/2019 4:05 PM CDT) Ejection Fraction [facility] [employer] [facility] Specimen Narrative Performed At Transthoracic Echocardiography Report (TTE) [facility] [employer] [facility] Demographics Patient NameVALENZUELA, Date of Study05/06/2019 KHADIJAH Female Visit [id number] Room [id number] Number Date of 1975Referring Matt Mcnally MD Age 43 year(s)[employer] Clint Logan [employer] Robert RingprePhysician KomalMD Procedure Type of Study TTE procedure:2DECHO W DOPPLER(CW/PW/COLOR) (Routine) Indications:Suspected cardiac source of emboli. Clinical History BRACHIAL ARTERIAL OCCLUSION, NO PMH Contrast Medium: Bubble Study. Height: 64 inches Weight: 83.46 kg (184 lbs) BSA: 1.89 m^2 BMI: 31.58 kg/m^2 HR: 74 bpm BP: 179/84 mmHg Summary 1. Normal LV size and function. LVEF is 55-60% 2. Diastology: Grade 1 diastolic dysfunction 3. Normal RV size and function 4. No significant valvular heart disease 5. Unable to estimate PASP 6. No pericardial effusion 7. No evidence of right to left shunting after the injection of agitated saline. Previous Study No prior exam available for comparison. Signature Findings Left Ventricle The left ventricle is chamber size (by PSLAX di mension) is normal (female - LVIDd 3.8-5.2cm) . No rmal LV wall thickness. All of the LV segments co ntract normally . Global LV systolic function no rmal . LVEF by Licona's method of disk as sessment is normal (>60%) . The LVEF was measured us ing Licona's bi-plane method of disk . Grade 1 di astolic dysfunction (impaired relaxation and lo w-normal LA pressure). Left AtriumLA size is mildly enlarged . Right VentricleThe right ventricular chamber size and systolic fu nction are within normal limits. Right Atrium RA cavity size is normal . Atrial SeptumIV saline contrast injection was negative for a PFO (p atent foramen ovale) at rest and post Valsalva . Aortic Valve Normal AoV structure and function. Mitral Valve The submitral apparatus appears mildly thickened . No evidence of mitral regurgitation. Tricuspid ValveTV structure is normal. Un able to estimate peak systolic PA pressure; in adequate TR velocity signal. Pulmonic Valve Normal PV structure and function by limited views an d Doppler. AortaAortic root size (SInus of Valsalva diameter) is no rmal . PericardiumNo significant pericardial effusion is visualized. IVC/SVC/PA/PV/PleuralThe estimated RA pressure by IVC dynamics 0-5mmHg . Chambers/Structures Left Atrium LA Volume: 64.93 ml LA Area: 19.35 cm^2 LA Vol. Index: 34 ml/m^2 Left Ventricle LVIDd: 4.48 cm LV Septum Diastolic: 0.96 cm LV PW Diastolic: 0.79 cm LVEDV Licona's:90.63 ml LVESV Licona's:34.02 ml LVEF Licona's: 62.5 %LVEDV I: 48 ml/m^2 LVESVI: 18 ml/m^2 LVOT Diameter: 2.08 cm Right Ventricle TAPSE: 1.83 cm Aorta Ao Root S of Sugar.: 2.76 cm Doppler/Quantitative Measurements Mitral Valve MV Peak E-Wave: 0.71 m/sMV Peak A-Wave: 0.9 m/s E/A Ratio: 0.79 Peak Gradient: 2.02 mmHg Deceleration Time: 207.3 msec MV Jez. Peak: Tissue Doppler E' Lateral Velocity: 0.09 m/s E/E': 8.21 Aortic Valve Peak Velocity: 1.78 m/sMean Velocity: 1.09 m/s Peak Gradient: 12.68 mmHgMean Gradient: 5.58 mmHg AV Area (continuity): 2.8 cm^2 AV VTI: 30.31 cm AV DVI: 0.83 LVOT Peak Velocity: 1.34 m/s Peak Gradient: 7.23 mmHg Mean Velocity: 0.89 m/s Mean Gradient: 3.6 mmHg LVOT Diameter: 2.08 cmLVOT VTI: 25.03 cm LVOT Area: 3.4 cm^2 LVOT SV:85.01 ml LVOT CO: 6.29 l/min LVOT CI: 3.33 l/min/m^2 Procedure Note Interface, External Ris In - 05/07/2019 10:34 AM CDT Transthoracic Echocardiography Report (TTE) Demographics Patient Name IDALIA, Date of Study 05/06/2019 KHADIJAH Gender Female Visit Number [id number] Race Room Number 1011 Number Date of 1975 Referring Physician Subha Mcnally MD Age 43 year(s) [employer] Clint Doreen [employer] Robert Baltazar Interpreting Physician [employer] Procedure Type of Study TTE procedure:2DECHO W DOPPLER(CW/PW/COLOR) (Routine) Indications:Suspected cardiac source of emboli. Clinical History BRACHIAL ARTERIAL OCCLUSION, NO PMH Contrast Medium: Bubble Study. Height: 64 inches Weight: 83.46 kg (184 lbs) BSA: 1.89 m^2 BMI: 31.58 kg/m^2 HR: 74 bpm BP: 179/84 mmHg Summary 1. Normal LV size and function. LVEF is 55-60% 2. Diastology: Grade 1 diastolic dysfunction 3. Normal RV size and function 4. No significant valvular heart disease 5. Unable to estimate PASP 6. No pericardial effusion 7. No evidence of right to left shunting after the injection of agitated saline. Previous Study No prior exam available for comparison. Signature Findings Left Ventricle The left ventricle is chamber size (by PSLAX dimension) is normal (female - LVIDd 3.8-5.2cm) . Normal LV wall thickness. All of the LV segments contract normally . Global LV systolic function normal . LVEF by Licona's method of disk assessment is normal (>60%) . The LVEF was measured using Licona's bi-plane method of disk . Grade 1 diastolic dysfunction (impaired relaxation and low-normal LA pressure). Left Atrium LA size is mildly enlarged . Right Ventricle The right ventricular chamber size and systolic function are within normal limits. Right Atrium RA cavity size is normal . Atrial Septum IV saline contrast injection was negative for a PFO (patent foramen ovale) at rest and post Valsalva . Aortic Valve Normal AoV structure and function. Mitral Valve The submitral apparatus appears mildly thickened . No evidence of mitral regurgitation. Tricuspid Valve TV structure is normal. Unable to estimate peak systolic PA pressure; inadequate TR velocity signal. Pulmonic Valve Normal PV structure and function by limited views and Doppler. Aorta Aortic root size (SInus of Valsalva diameter) is normal . Pericardium No significant pericardial effusion is visualized. IVC/SVC/PA/PV/Pleural The estimated RA pressure by IVC dynamics 0-5mmHg . Chambers/Structures Left Atrium LA Volume: 64.93 ml LA Area: 19.35 cm^2 LA Vol. Index: 34 ml/m^2 Left Ventricle LVIDd: 4.48 cm LV Septum Diastolic: 0.96 cm LV PW Diastolic: 0.79 cm LVEDV Licona's:90.63 ml LVESV Licona's:34.02 ml LVEF Licona's: 62.5 % LVEDVI: 48 ml/m^2 LVESVI: 18 ml/m^2 LVOT Diameter: 2.08 cm Right Ventricle TAPSE: 1.83 cm Aorta Ao Root S of Usgar.: 2.76 cm Doppler/Quantitative Measurements Mitral Valve MV Peak E-Wave: 0.71 m/s MV Peak A-Wave: 0.9 m/s E/A Ratio: 0.79 Peak Gradient: 2.02 mmHg Deceleration Time: 207.3 msec MV Jez. Peak: Tissue Doppler E' Lateral Velocity: 0.09 m/s E/E': 8.21 Aortic Valve Peak Velocity: 1.78 m/s Mean Velocity: 1.09 m/s Peak Gradient: 12.68 mmHg Mean Gradient: 5.58 mmHg AV Area (continuity): 2.8 cm^2 AV VTI: 30.31 cm AV DVI: 0.83 LVOT Peak Velocity: 1.34 m/s Peak Gradient: 7.23 mmHg Mean Velocity: 0.89 m/s Mean Gradient: 3.6 mmHg LVOT Diameter: 2.08 cm LVOT VTI: 25.03 cm LVOT Area: 3.4 cm^2 LVOT SV:85.01 ml LVOT CO: 6.29 l/min LVOT CI: 3.33 l/min/m^2 Performing Organization Address City/State/Zipcode Phone Number [facility] after 08/05/2018
[2019-08-06 08:20] LABS: Urine Blood 1+ (NEG); Urine Glucose NEGATIVE (NEG); Urine Protein NEGATIVE (NEG); Urine Specific Gravity 1.025 (1.005-1.030)
--- NOTE | 2019-08-06 09:27 | RAD REPORT ---
EXAM DESCRIPTION: USExtrem Venous W Compress Bil08/06/2019 9:21 am CLINICAL HISTORY: Leg pain COMPARISON: none FINDINGS: The common femoral, superficial femoral, popliteal and posterior tibial veins bilaterally are compressible and demonstrate augmentation. Doppler demonstrates good flow. IMPRESSION: No evidence of deep venous thrombosis involving either lower extremity.
--- NOTE | 2019-08-06 09:45 | RAD REPORT ---
EXAM DESCRIPTION: US - UPPER EXTREMITY VENOUS UNILATE - 08/06/2019 9:33 am CLINICAL HISTORY: left arm swelling/pain COMPARISON: None. FINDINGS: Left internal jugular vein, left subclavian vein, left axillary vein, left brachial vein, left cephalic, left basilic, left ulnar and left radial veins demonstrate phasic signal. The veins ar e compressible. Doppler demonstrates good flow. . IMPRESSION: No sonographic evidence of thrombus involving the left upper extremity veins.
--- NOTE | 2019-08-06 10:40 | RAD REPORT ---
EXAM DESCRIPTION: CT - Upper Ext Angio - 08/06/2019 10:16 am CLINICAL HISTORY: Left arm numbness COMPARISON: None. TECHNIQUE: CT angiogram of the left upper extremity performed. 130 cc Isovue 370 administered intrav enously. 3D MIPS reconstruction performed All CT scans are performed using dose optimization technique as appropriate and may include automated exposure control or mA/KV adjustment according to patient size. FINDINGS: The opacification of the arteries is suboptimal. Left subclavian, left axillary, left brachial,, left radial and left ulnar arteries appear grossly no rmal. Evaluation of the hand arteries is nondiagnostic No thrombus is seen. No dissection visualized. No aneurysm noted IMPRESSION: Grossly normal CTA left upper extremity Nondiagnostic evaluation of the hand arteries
--- NOTE | 2019-08-06 11:01 | ER ---
Nurse's Notes [facility] Name: Khadijah Lacey Age: 43 yrs Sex: Female : 1975 Arrival Date: 08/06/2019 Time: 06:25 Bed 18 Private MD: Diagnosis: Pain in left arm Presentation: 08/06 07:00 Presenting complaint: Patient states: "On Friday I was driving here from [place], [place] aa5 and about half way my left arm went numb and I stopped by the nearest ER and they said it was going to go away but it's still numb". Pt states "I have had a blood clot in my left arm before and I had surgery for it on May 09". Strong left radial pulse palpated. Pt states "I am taking Eliquis". Transition of care: patient was not received from another setting of care. Onset of symptoms was July 2019. Risk Assessment: Do you want to hurt yourself or someone else? Patient reports no desire to harm self or others. Initial Sepsis Screen: Does the patient meet any 2 criteria? No. Patient's initial sepsis screen is negative. Does the patient have a suspected source of infection? No. Patient's initial sepsis screen is negative. Care prior to arrival: None. 07:00 Acuity: LINDA 2 aa5 07:00 Method Of Arrival: Ambulatory aa5 SPECIALIZED DEVELOPER: 07:03 [facility] 07/29/2019 aa5 Historical: - Allergies: 07:03 No Known Allergies; aa5 - PMHx: 07:03 Upper extremity clot; aa5 - PSHx: 07:03 "Left arm for blood clot"; aa5 - Immunization history:: Adult Immunizations unknown. - Social history:: Smoking status: Patient uses tobacco products, smokes one-half pack cigarettes per day. - Ebola Screening: : No symptoms or risks identified at this time. Screenin:20 Abuse screen: Denies threats or abuse. Denies injuries from another. Nutritional sg screening: No deficits noted. Tuberculosis screening: No symptoms or risk factors identified. Never had TB. Fall Risk None identified. Assessment: 07:19 General: Appears in no apparent distress. well groomed, well developed, well nourished, sg Behavior is calm, cooperative, appropriate for age. Pain: Denies pain. Neuro: Reports numbness in left arm Denies weakness blurred vision dizziness, difficulty swallowing, headache. Cardiovascular: Patient's skin is warm and dry. Chest pain is denied. Respiratory: Airway is patent Respiratory effort is even, unlabored, Respiratory pattern is regular, symmetrical. GI: Abdomen is round non-distended, Reports tolerance of fluids, tolerance of food. : No signs and/or symptoms were reported regarding the genitourinary system. EENT: No signs and/or symptoms were reported regarding the EENT system. Derm: Skin is pink, warm \\T\\ dry. Musculoskeletal: Circulation, motion, and sensation intact. Range of motion: intact in all extremities. 09:02 Reassessment: Patient appears in no apparent distress at this time. pt remains off the sg unit in ultrasound at this time, assistant technician marva reports the pt to go to CT then back to the exam room after ultrasound. 10:50 Reassessment: Patient appears in no apparent distress at this time. pt reports numbness sg has improved while being in ultrasound, but having feeling of cold in fingers of left hand, a heel warmer has been applied for comfort, pt reports feels better. Vital Signs: 07:03 BP 150 / 90; Pulse 78; Resp 16 S; Temp 98.4(O); Pulse Ox 100% on R/A; Weight 81.65 kg aa5 (R); Height 5 ft. 4 in. (162.56 cm) (R); Pain 6/10; 07:58 BP 148 / 96; Pulse 73; Resp 16; Temp 97.6(TE); Pulse Ox 100% on R/A; mh5 11:01 BP 156 / 92; Pulse 77; Resp 17; Pulse Ox 99% on R/A; sg 07:03 Body Mass Index 30.90 (81.65 kg, 162.56 cm) aa5 ED Course: 06:25 Patient arrived in ED. ag3 07:02 Triage completed. aa5 07:02 Arm band placed on. aa5 07:05 Sun Marcos FNP-C is PHCP. kb 07:05 Ronen Soni MD is Attending Physician. kb 07:17 Minesh Rowan, RN is Primary Nurse. sg 07:20 No provider procedures requiring assistance completed. Urine collected: clean catch sg specimen, cloudy. 07:59 Patient has correct armband on for positive identification. Bed in low position. Call [facility] light in reach. Pulse ox on. NIBP on. 08:15 Initial lab(s) drawn, by me, sent to lab. Inserted saline lock: 22 gauge in right [facility] antecubital area, using aseptic technique. 08:16 Creatinine for Radiology Sent. [facility] 09:24 US Extremity Venous W Compression Emery In Process Unspecified. EDMS 09:24 UPPER EXTREMITY VENOUS UNILATE In Process Unspecified. EDMS 09:30 Radiology exam delayed due to pt is in us. sj 10:17 Upper Ext Angio In Process Unspecified. EDMS Administered Medications: No medications were administered Outcome: 11:00 Discharge ordered by . kb 11:15 Patient left the ED. sg Signatures: Dispatcher [employer] EDMS Sun Marcos, FAMILY SERVICES SPECIALIST-C FAMILY SERVICES SPECIALIST-Minesh Buchanan, RN Marva Betancourt Audri, RN RN heather5 [place] [id number] [address]
--- NOTE | 2019-08-06 11:02 | EDPHYS ---
Physician Documentation [facility] Name: Khadijah Lacey Age: 43 yrs Sex: Female : 1975 Arrival Date: 08/06/2019 Time: 06:25 Bed 18 Private MD: ED Physician Ronen Soni HPI: 08/06 07:43 This 43 yrs old Female presents to ER via Ambulatory with complaints of kb FINGERS FEEL NUMB. 07:43 The patient presents to the emergency department with paresthesias of the left upper kb extremity, that is mild. Onset: The symptoms/episode began/occurred 3 day(s) ago. Context: occurred while driving home from [place], occurred while the patient was sitting, driving. Associated signs and symptoms: Pertinent positives: paresthesias, Pertinent negatives: altered mental status, chills, dizziness, fever, headache, nausea, neck stiffness, seizure, syncope, near-syncope, blurred vision, double vision, visual field changes, loss of vision, weakness. Severity of symptoms: At their worst the symptoms were moderate in the emergency department the symptoms are unchanged. Patient's baseline: Neuro: alert and fully oriented, Motor: no deficits, Ambulation: walks without assistance, Speech: normal, The patient has a previous history of DVT. Current symptoms: Currently, the patient is not experiencing any symptoms. The patient has not experienced similar symptoms in the past. The patient has been recently seen by a physician: the ER physician, out of Town, with similar presenting complaints, was given a prescription for pain medications. Pt reports she was on her way home from [place] and developed numbness to left arm. Went to the nearest ER and was given pain medication. Started getting some sensation back in her arm and they told her it would all resolve with time. Came in today because the numbness has not gone away. Reports she has had clots in her left arm before and had them removed in April. Makes the drive to [place] frequently. Also reports pain/tightness in both calves that gets worse when she walks 30-40 steps. 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 - Social history:: Smoking status: Patient uses tobacco products, smokes one-half pack cigarettes per day. - Ebola Screening: : No symptoms or risks identified at this time. ROS: 07:40 Constitutional: Negative for fever, chills, and weight loss, Neck: Negative for injury, kb pain, and swelling, Cardiovascular: Negative for chest pain, palpitations, and edema, Respiratory: Negative for shortness of breath, cough, wheezing, and pleuritic chest pain, Abdomen/GI: Negative for abdominal pain, nausea, vomiting, diarrhea, and constipation, Back: Negative for injury and pain, : Negative for injury, bleeding, discharge, and swelling, Skin: Negative for injury, rash, and discoloration. 07:40 Neuro: Positive for numbness, of the left arm. 07:42 MS/extremity: Positive for pain, of the right calf and left calf. kb Exam: 07:41 Constitutional: This is a well developed, well nourished patient who is awake, alert, kb and in no acute distress. Head/Face: Normocephalic, atraumatic. Neck: Trachea midline, no thyromegaly or masses palpated, and no cervical lymphadenopathy. Supple, full range of motion without nuchal rigidity, or vertebral point tenderness. No Meningismus. Chest/axilla: Normal chest wall appearance and motion. Nontender with no deformity. No lesions are appreciated. Cardiovascular: Regular rate and rhythm with a normal S1 and S2. No gallops, murmurs, or rubs. Normal PMI, no JVD. No pulse deficits. Respiratory: Lungs have equal breath sounds bilaterally, clear to auscultation and percussion. No rales, rhonchi or wheezes noted. No increased work of breathing, no retractions or nasal flaring. Abdomen/GI: Soft, non-tender, with normal bowel sounds. No distension or tympany. No guarding or rebound. No evidence of tenderness throughout. Skin: Warm, dry with normal turgor. Normal color with no rashes, no lesions, and no evidence of cellulitis. MS/ Extremity: Pulses equal, no cyanosis. Neurovascular intact. Full, normal range of motion. Neuro: Awake and alert, GCS 15, oriented to person, place, time, and situation. Cranial nerves II-XII grossly intact. Motor strength 5/5 in all extremities. Sensory grossly intact. Cerebellar exam normal. Normal gait. 07:42 Musculoskeletal/extremity: DVT Exam: no pain, no tenderness, swelling, positive Homans' kb sign noted on exam, bluish discoloration, erythema, increased warmth. Vital Signs: 07:03 BP 150 / 90; Pulse 78; Resp 16 S; Temp 98.4(O); Pulse Ox 100% on R/A; Weight 81.65 kg aa5 (R); Height 5 ft. 4 in. (162.56 cm) (R); Pain 6/10; 07:58 BP 148 / 96; Pulse 73; Resp 16; Temp 97.6(TE); Pulse Ox 100% on R/A; mh5 11:01 BP 156 / 92; Pulse 77; Resp 17; Pulse Ox 99% on R/A; sg 07:03 Body Mass Index 30.90 (81.65 kg, 162.56 cm) aa5 MDM: 07:05 Patient medically screened. kb 07:37 Data reviewed: vital signs, nurses notes. Data interpreted: Pulse oximetry: on room air kb is 100 %. Interpretation: normal. 10:59 Counseling: I had a detailed discussion with the patient and/or guardian regarding: the kb historical points, exam findings, and any diagnostic results supporting the discharge/admit diagnosis, lab results, radiology results, the need for outpatient follow up, a family practitioner, to return to the emergency department if symptoms worsen or persist or if there are any questions or concerns that arise at home. 08/06 07:19 Order name: Urine Dipstick--Ancillary (enter results); Complete Time: 08:24 bd 08/06 07:19 Order name: Urine --Ancillary (enter results); Complete Time: 08:24 bd 08/06 07:16 Order name: US Extremity Venous W Compression Emery; Complete Time: 09:38 kb 08/06 07:48 Order name: UPPER EXTREMITY VENOUS UNILATE; Complete Time: 09:48 EDMS 08/06 08:00 Order name: Creatinine for Radiology; Complete Time: 08:52 kb 08/06 08:00 Order name: IV Start; Complete Time: 08:16 kb 08/06 08:05 Order name: Upper Ext Angio; Complete Time: 10:58 EDMS Administered Medications: No medications were administered Disposition: 18:59 Co-signature as Attending Physician, Ronen Soni MD. rn Disposition: 08/06/19 11:00 Discharged to Home. Impression: Pain in left arm. - Condition is Stable. - Discharge Instructions: Neuropathic Pain. - Medication Reconciliation Form, Thank You Letter, Antibiotic Education, Prescription Opioid Use, Work release form form. - Follow up: Emergency Department; When: As needed; Reason: Worsening of condition. Follow up: Private Physician; When: 2 - 3 days; Reason: Recheck today's complaints, Continuance of care, Re-evaluation by your physician. Signatures: Dispatcher [employer] EDMS Sun Marcos, MISTY-C GAS PUMPER-CkMinesh Juarez RN RN sg Nieto, Roman, MD MD rn Calderon, Audri, RN RN aa5 Corrections: (The following items were deleted from the chart) 07:42 07:41 Constitutional: This is a well developed, well nourished patient who is awake, kb alert, and in no acute distress. Head/Face: Normocephalic, atraumatic. Neck: Trachea midline, no thyromegaly or masses palpated, and no cervical lymphadenopathy. Supple, full range of motion without nuchal rigidity, or vertebral point tenderness. No Meningismus. Chest/axilla: Normal chest wall appearance and motion. Nontender with no deformity. No lesions are appreciated. Cardiovascular: Regular rate and rhythm with a normal S1 and S2. No gallops, murmurs, or rubs. Normal PMI, no JVD. No pulse deficits. Respiratory: Lungs have equal breath sounds bilaterally, clear to auscultation and percussion. No rales, rhonchi or wheezes noted. No increased work of breathing, no retractions or nasal flaring. Abdomen/GI: Soft, non-tender, with normal bowel sounds. No distension or tympany. No guarding or rebound. No evidence of tenderness throughout. Skin: Warm, dry with normal turgor. Normal color with no rashes, no lesions, and no evidence of cellulitis. MS/ Extremity: Pulses equal, no cyanosis. Neurovascular intact. Full, normal range of motion. Neuro: Awake and alert, GCS 15, oriented to person, place, time, and situation. Cranial nerves II-XII grossly intact. Motor strength 5/5 in all extremities. Sensory grossly intact. Cerebellar exam normal. Normal gait. kb 07:48 07:17 Extremity Venous Uni Ltd+[id number].RAD.BRZ ordered. EDMS EDMS 11:15 11:00 08/06/2019 11:00 Discharged to Home. Impression: Pain in left arm. Condition is sg Stable. Forms are Medication Reconciliation Form, Thank You Letter, Antibiotic Education, Prescription Opioid Use. Follow up: Emergency Department; When: As needed; Reason: Worsening of condition. Follow up: Private Physician; When: 2 - 3 days; Reason: Recheck today's complaints, Continuance of care, Re-evaluation by your physician. kb
[2019-08-06 11:21] VITALS: TEMP 97.6
[2019-08-06 11:22] VITALS: BP 156/92; O2SAT 99
== END 2019-08-06 11:15 | disposition home or self-care (01) ==
LOC: ER 06:14
DX: M79.602 Pain in left arm (principal); F17.210 Nicotine dependence, cigarettes, uncomplicated
CPT/HCPCS: 36415; 73206; 81003; 81025; 93970; 93971; 99284; Q9967